=== PATIENT | male | born 1955 | race Asian ===

== ENCOUNTER 2017-07-03 17:34 | Emergency (ER) | payer MEDICARE, MEDICAID ==
[2017-07-03 17:50] LABS: BASOPHILS % (AUTO) 1 % (0-3); EOSINOPHILS % (AUTO) 0 % (0-9); HEMATOCRIT 30 % (39-53); MEAN CORPUSCULAR HGB CONC 35.3 gm/dl (32.0-36.0); MEAN CORPUSCULAR VOLUME 90 fL (80-100); MONOCYTES % (AUTO) 4.5 % (0-12); NEUTROPHILS % (AUTO) 80.7 % (37-80)
[2017-07-03] MEDS ORDERED: LORAZEPAM 2 MG/ML SOL ONE (17:53)
[2017-07-03 18:05] LABS: ALBUMIN 3.8 gm/dl (3.4-5.0); CALCIUM 8.8 mg/dl (8.5-10.1); POTASSIUM 3.9 mMol/L (3.5-5.1)
[2017-07-03] MEDS ORDERED: SODIUM CHLORIDE 0.9% FLUSH 10 ML SOL IV PRN (18:16)
[2017-07-03] MEDS ORDERED: LORAZEPAM 2 MG/ML SOL IV ONE (18:16)
[2017-07-03] MEDS ORDERED: ETOMIDATE 2 MG/ML SOL IV ONE ×2 (18:30→18:37)
[2017-07-03] MEDS ORDERED: ROCURONIUM BROMIDE 10 MG/ML SOL IV ONE ×2 (18:30→18:39)
[2017-07-03] MEDS ORDERED: SODIUM CHLORIDE 0.9% 1000ML 1,000 ML IV ONE (18:35)
[2017-07-03 19:51] VITALS: TEMP 97.8
[2017-07-03 19:57] VITALS: BP 184/73; PULSE 77; RESP 16; O2SAT 100
== END 2017-07-03 19:00 | disposition short-term general hospital (02) | DRG 64 ==
LOC: ED 17:34
DX: I62.01 Nontraumatic acute subdural hemorrhage (principal); N18.6 End stage renal disease; R40.2122 Coma scale, eyes open, to pain, at arrival to emergency department; R40.2212 Coma scale, best verbal response, none, at arrival to emergency department; R40.2342 Coma scale, best motor response, flexion withdrawal, at arrival to emergency department; Z99.2 Dependence on renal dialysis; E11.22 Type 2 diabetes mellitus with diabetic chronic kidney disease
CPT/HCPCS: 31500; 70450; 71010; 80053; 83880; 84484; 85025; 93005; 96365; 96374; 96375; 99291; 99292; J2060

== ENCOUNTER 2017-07-17 17:42 | Emergency (ER) | payer MEDICARE, MEDICAID ==
[2017-07-17] MEDS ORDERED: SODIUM CHLORIDE 0.9% 1000ML 1,000 ML IV ONE (17:48)
[2017-07-17 18:28] LABS: BASOPHILS % (AUTO) 1 % (0-3); EOSINOPHILS % (AUTO) 1 % (0-9); HEMATOCRIT 29 % (39-53); MEAN CORPUSCULAR HGB CONC 34.6 gm/dl (32.0-36.0); MEAN CORPUSCULAR VOLUME 91 fL (80-100); MONOCYTES % (AUTO) 5.8 % (0-12); NEUTROPHILS % (AUTO) 81.4 % (37-80)
[2017-07-17 18:36] LABS: CALCIUM 8.7 mg/dl (8.5-10.1); MAGNESIUM 1.5 mg/dl (1.8-2.4); POTASSIUM 3.8 mMol/L (3.5-5.1)
[2017-07-17 18:37] VITALS: TEMP 99.2
[2017-07-17] MEDS ORDERED: MAGNESIUM SULFATE 1 GM/2 ML SOL IV ONE (19:05)
[2017-07-17] MEDS ORDERED: MAGNESIUM SULFATE 5 GM/10 ML SOL ONE (19:36)
[2017-07-17] MEDS ORDERED: SODIUM CHLORIDE 0.9% 100 ML 100 ML IV ONE (19:38)
[2017-07-17 20:21] VITALS: O2SAT 98
[2017-07-17] MEDS ORDERED: METOPROLOL TARTRATE 5 MG/5 ML SOL IV ONE ×2 (20:33→20:36)
[2017-07-17] MEDS ORDERED: HYDRALAZINE HYDROCHLORIDE 20 MG/ML SOL IV STA (21:05)
[2017-07-17] MEDS ORDERED: HYDRALAZINE HYDROCHLORIDE 20 MG/ML SOL ONE (21:11)
[2017-07-17 23:58] VITALS: BP 133/73; PULSE 70; RESP 20
== END 2017-07-17 21:40 | disposition home or self-care (01) | DRG 948 ==
LOC: ED 17:42
DX: R53.83 Other fatigue (principal); I15.1 Hypertension secondary to other renal disorders; E83.42 Hypomagnesemia; N28.89 Other specified disorders of kidney and ureter
CPT/HCPCS: 70450; 80048; 83735; 84100; 85025; 96365; 96374; 96375; 99070; 99284; 99285; J0360; J3475

== ENCOUNTER 2017-09-02 13:37 | Emergency (ER) | payer MEDICARE, MEDICAID ==
[2017-09-02 14:02] VITALS: TEMP 97.8
[2017-09-02] MEDS ORDERED: SODIUM CHLORIDE 0.9% 1000ML 1,000 ML IV SCH (14:15)
[2017-09-02 14:19] VITALS: RESP 20
[2017-09-02 14:21] LABS: BASOPHILS % (AUTO) 1 % (0-3); EOSINOPHILS % (AUTO) 1 % (0-9); HEMATOCRIT 27 % (39-53); MEAN CORPUSCULAR HGB CONC 31.9 gm/dl (32.0-36.0); MEAN CORPUSCULAR VOLUME 91 fL (80-100); MONOCYTES % (AUTO) 7.3 % (0-12); NEUTROPHILS % (AUTO) 80.2 % (37-80)
[2017-09-02 14:35] VITALS: BP 92/34; PULSE 30; O2SAT 98
[2017-09-02 14:38] LABS: POTASSIUM 7.2 mMol/L (3.5-5.1)
== END 2017-09-02 14:53 | disposition short-term general hospital (02) | DRG 310 ==
LOC: ED 13:37
DX: I44.2 Atrioventricular block, complete (principal); R06.02 Shortness of breath
CPT/HCPCS: 36415; 71010; 80053; 83880; 84484; 85025; 93005; 99284

== ENCOUNTER 2017-10-04 04:35 | Emergency (ER) | payer MEDICARE, MEDICAID ==
[2017-10-04 05:09] LABS: BASOPHILS % (AUTO) 0 % (0-3); EOSINOPHILS % (AUTO) 0 % (0-9); HEMATOCRIT 31 % (39-53); MEAN CORPUSCULAR VOLUME 88 fL (80-100); MONOCYTES % (AUTO) 5.2 % (0-12); NEUTROPHILS % (AUTO) 80.9 % (37-80)
[2017-10-04 05:25] LABS: ALBUMIN 3.4 gm/dl (3.4-5.0); CALCIUM 8.1 mg/dl (8.5-10.1); POTASSIUM 7.3 mMol/L (3.5-5.1)
[2017-10-04] MEDS ORDERED: INSULIN HUMAN REGULAR 100 U/ML SOL IV ONE (05:29)
[2017-10-04] MEDS ORDERED: DEXTROSE 50% 1 VIAL SOL IV ONE ×2 (05:29→05:31)
[2017-10-04] MEDS ORDERED: SODIUM CHLORIDE 0.9% FLUSH 10 ML SOL IV PRN (05:30)
[2017-10-04] MEDS ORDERED: INSULIN HUMAN REGULAR 100 U/ML SOL ONE (05:31)
[2017-10-04] MEDS ORDERED: CALCIUM GLUCONATE 100 MG/ML SOL IV ONE (05:34)
[2017-10-04] MEDS ORDERED: CALCIUM GLUCONATE 10% 100 MG/ML SOL IV ONE (05:37)
[2017-10-04 05:52] VITALS: RESP 16; TEMP 97.4
[2017-10-04 06:09] VITALS: BP 140/65; PULSE 57; O2SAT 98
== END 2017-10-04 06:15 | disposition short-term general hospital (02) | DRG 91 ==
LOC: ED 04:35
DX: R25.1 Tremor, unspecified (principal); N18.6 End stage renal disease; E87.5 Hyperkalemia; B18.1 Chronic viral hepatitis B without delta-agent; R00.1 Bradycardia, unspecified
CPT/HCPCS: 80053; 82140; 82962; 85025; 93005; 96365; 96374; 96375; 99284; 99285; J0610; J1815

== ENCOUNTER 2017-11-06 17:31 | Emergency (ER) | payer MEDICARE, MEDICAID ==
[2017-11-06] MEDS ORDERED: SODIUM CHLORIDE 0.9% 1000ML 1,000 ML IV SCH (17:45)
[2017-11-06 17:59] VITALS: TEMP 98.2
[2017-11-06 18:39] LABS: BASOPHILS % (AUTO) 1 % (0-3); EOSINOPHILS % (AUTO) 2 % (0-9); HEMATOCRIT 36 % (39-53); MEAN CORPUSCULAR HGB CONC 33.1 gm/dl (32.0-36.0); MEAN CORPUSCULAR VOLUME 87 fL (80-100); MONOCYTES % (AUTO) 6.3 % (0-12); NEUTROPHILS % (AUTO) 74.2 % (37-80)
[2017-11-06 18:49] LABS: ALBUMIN 3.2 gm/dl (3.4-5.0); GLOM FILT RATE 13 mL/min (>60); POTASSIUM 3.7 mMol/L (3.5-5.1); SODIUM 132 mMol/L (136-145)
[2017-11-06 20:50] LABS: ALT < 6 IU/L (14-63)
[2017-11-07 01:59] VITALS: PULSE 76
[2017-11-07 02:00] VITALS: BP 197/88; RESP 17; O2SAT 98
== END 2017-11-06 22:30 | disposition home or self-care (01) | DRG 312 ==
LOC: ED 17:31
DX: R55 Syncope and collapse (principal); R40.2122 Coma scale, eyes open, to pain, at arrival to emergency department; R40.2212 Coma scale, best verbal response, none, at arrival to emergency department; R40.2342 Coma scale, best motor response, flexion withdrawal, at arrival to emergency department; R29.727 NIHSS score 27; Z99.2 Dependence on renal dialysis; R11.2 Nausea with vomiting, unspecified
CPT/HCPCS: 70450; 71045; 80053; 80307; 83735; 85025; 93005; 99285

== ENCOUNTER 2017-11-27 18:26 | Emergency (ER) | payer MEDICARE, MEDICAID ==
[2017-11-27] MEDS: DEXTROSE 50% 1 VIAL SOL IV ONE (18:39)
[2017-11-27 19:15] LABS: ALBUMIN 3.2 gm/dl (3.4-5.0)
[2017-11-27 19:23] LABS: BASOPHILS % (AUTO) 2 % (0-3); EOSINOPHILS % (AUTO) 2 % (0-9); HEMATOCRIT 38 % (39-53); MEAN CORPUSCULAR HGB CONC 33.7 gm/dl (32.0-36.0); MEAN CORPUSCULAR VOLUME 89 fL (80-100); MONOCYTES % (AUTO) 10.1 % (0-12); NEUTROPHILS % (AUTO) 72.8 % (37-80); POTASSIUM 3.2 mMol/L (3.5-5.1)
[2017-11-27] MEDS ORDERED: DEXTROSE 50% 1 VIAL SOL IV ONE (19:27)
[2017-11-27 20:12] LABS: ALBUMIN 3.3 gm/dl (3.4-5.0); ALT 11 IU/L (14-63); AMMONIA < 10 umol/L (11-32); BILIRUBIN,DIRECT 0.2 mg/dl (0.0-0.2)
[2017-11-27 20:23] VITALS: TEMP 98.2
[2017-11-27 21:22] VITALS: BP 144/66; PULSE 75; RESP 19; O2SAT 100
== END 2017-11-27 21:33 | disposition short-term general hospital (02) | DRG 81 ==
LOC: ED 18:26
DX: R40.1 Stupor (principal); E11.9 Type 2 diabetes mellitus without complications; R40.2142 Coma scale, eyes open, spontaneous, at arrival to emergency department; R40.2242 Coma scale, best verbal response, confused conversation, at arrival to emergency department; R40.2342 Coma scale, best motor response, flexion withdrawal, at arrival to emergency department; R79.89 Other specified abnormal findings of blood chemistry
CPT/HCPCS: 70450; 71045; 80069; 80076; 80307; 82140; 82962; 84484; 85025; 93005; 99285